=== PATIENT | male | born 1975 | race Caucasian/White ===

== ENCOUNTER 2017-04-09 11:24 | Emergency (ER) | payer OTHER ==
[~2017-04-09] VITALS: Ht 177.8 cm; Wt 100.0 kg
[~2017-04-09 11:24] MED LIST: ALBU8I INH; CETI10 PO; CIPR500T4 PO; PERC5TAB12 PO
[2017-04-09 11:26] VITALS: BP 152/75; PULSE 90; RESP 20; TEMP 98.6; O2SAT 97
--- NOTE | 2017-04-09 11:29 | PD ---
Physical Exam Time Seen by Provider: 11:27 Narrative 42 y/o male here with rectal bleeding for months, getting worse which prompted evaluation. Triamcinolone cream seems to help with this issue but he ran out. Vital signs reviewed. Seen at triage desk, awaiting bed placement. Data Data Last Documented VS Vital Signs Date Time Temp Pulse Resp B/P Pulse Ox O2 Delivery O2 Flow Rate FiO2 04/09/17 11:26 98.6 90 20 152/75 97 Room Air [facility] Medical Record Reviewed: Yes Supervised Visit with SHAVON: Chet Tirado April 09, 2017 11:29
[2017-04-09] MEDS ORDERED: PHEN60SU RECTAL (12:16)
--- NOTE | 2017-04-09 12:17 | PD ---
HPI Chief Complaint: GI Complaint Time Seen by Provider: 12:09 Travel History International Travel<30 days: No Contact w/Intl Traveler<30days: No Traveled to known affect area: No History of Present Illness HPI 42-year-old male here with complaint of rectal bleeding. Patient states that he has had several months of intermittent rectal bleeding. Describes this as bright red blood per rectum, on the toilet paper only. He does not have any blood intermixed with the stool, no rectal pain. No abdominal pain, nausea vomiting or hematemesis. He has a prescription for triamcinolone for his eczema and states that he applies this occasionally in the perirectal region when bleeding and it helps with the itching sensation. 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) Allergies-Medications (Allergen,Severity, Reaction): Coded Allergies: Penicillin (Verified Allergy, Severe, 08/28/15) Sulfa (Verified Allergy, Severe, Hives, 08/28/15) Reported Meds & Prescriptions Reported Meds & Active Scripts Active Ventolin Hfa 18 GM Inh (Albuterol Sulfate) 90 Mcg/Act Aer 2 Puff INH Q4H PRN Preparation H Supp (Phenylephrine-[place] Butter Supp) 0.25-88.44 % Supp 1 Supp RECTAL QID PRN Percocet 5-325 mg (Oxycodone/Acetaminophen) Oxycodone 5/325 Acetaminophen Tab 1- 2 Tab PO Q6H PRN Percocet 5-325 mg (Oxycodone/Acetaminophen) Oxycodone 5/325 Acetaminophen Tab 1- 2 Tab PO Q6H PRN Cipro (Ciprofloxacin HCl) 500 Mg Tab 500 Mg PO BID Reported Zyrtec 10 Mg Tab (Cetirizine HCl) 10 Mg Tab 10 Mg PO DAILY Ventolin Hfa (Albuterol Sulfate) 8 Gm Aero 2 Puff INH DIRECTED * SHAKE WELL BEFORE USE * Review of Systems Except as stated in HPI: all other systems reviewed are Neg Physical Exam Narrative GENERAL: Well-appearing male in no acute distress SKIN: Focused skin assessment warm/dry. HEAD: Normocephalic. EYES: No scleral icterus. No injection or drainage. ENT: Mucous membranes pink and moist. NECK: Supple CARDIOVASCULAR: Regular rate and rhythm. RESPIRATORY: No accessory muscle use. GASTROINTESTINAL: Obese RECTAL: Unremarkable external rectal examination. Digital rectal examination reveals internal hemorrhoid without active bleeding MUSCULOSKELETAL: Normal gait NEUROLOGICAL: Awake and alert. Normal speech. PSYCHIATRIC: Appropriate mood and affect; insight and judgment normal. Data Data Last Documented VS Vital Signs Date Time Temp Pulse Resp B/P Pulse Ox O2 Delivery O2 Flow Rate FiO2 04/09/17 11:26 98.6 90 20 152/75 97 Room Air MDM Medical Decision Making Medical Screen Exam Complete: Yes Emergency Medical Condition: Yes Medical Record Reviewed: Yes Differential Diagnosis 42-year-old male here with complaint of intermittent bright red blood per rectum over the last several months. Exam shows internal hemorrhoid without active bleeding. No evidence of external hemorrhoid, fissure. Less likely inflammatory bowel disease. Narrative Course Patient encouraged to use Preparation H and set of the triamcinolone. Counseled on sitz bath. Diagnosis Primary Impression: Internal hemorrhoid Referrals: [facility] as needed Additional Instructions: Preparation H as needed. Med/Other Pt SpecificInfo: Prescription(s) given Scripts Albuterol 18 GM Inh (Ventolin Hfa 18 GM Inh)90 Mcg/Act Aer2 Puff INH Q4H PRN ( SHORTNESS OF BREATH) #1 INHALER Ref 0 Prov:Paula Talavera MD 04/09/17 Phenylephrine-[place] Butter Supp (Preparation H Supp)0.25-88.44 % Supp1 Supp RECTAL QID PRN (INFLAMMATION) #10 SUPP Ref 0 Prov:Paula Talavera MD 04/09/17 Disposition: 01 DISCHARGE HOME Condition: Stable Paula aTlavera MD April 09, 2017 12:17
[2017-04-09] MEDS ORDERED: VENTAER INH (12:18)
[2017-05-07] MEDS ORDERED: BREX1TAB4 PO (13:15)
[2017-05-07] MEDS ORDERED: NYST10007 TOPICAL (14:09)
[2017-05-07] MEDS ORDERED: LOTR15T TOPICAL (14:09)
== END 2017-04-09 12:47 | disposition home or self-care (01) ==
LOC: NEPD 11:24
DX: K64.8 Other hemorrhoids (principal); J45.909 Unspecified asthma, uncomplicated
CPT/HCPCS: 99284